=== PATIENT | female | born 1985 | race Caucasian/White ===

== ENCOUNTER 2021-11-06 15:14 | Emergency (ER) | payer SELFPAY ==
[~2021-11-06] VITALS: Ht 162.6 cm; Wt 75.0 kg
[2021-11-06 16:04] VITALS: TEMP 99.6
[2021-11-06 16:16] LABS: COLLECTION METHOD CLEAN CATCH
[2021-11-06 16:22] LABS: MUCOUS Present (NOT PRESENT); PH 6 (5-8); URINE APPEARANCE Hazy (CLEAR/HAZY); URINE BACTERIA Rare (NONE SEEN); URINE BILIRUBIN Negative (NEGATIVE); URINE BLOOD 2+ (NEGATIVE); URINE COLOR Yellow (YELLOW); URINE GLUCOSE Negative (NEGATIVE); URINE KETONE Trace (NEGATIVE); URINE LEUKOCYTE ESTERASE Negative (NEGATIVE); URINE NITRATE Negative (NEGATIVE); URINE PROTEIN(semi-quant) Negative (NEGATIVE); URINE RBC 0-2 /hpf (0-2); URINE UROBILINOGEN Negative (NEGATIVE)
[2021-11-06 17:20] VITALS: BP 123/66; PULSE 88
== END 2021-11-06 17:22 | disposition home or self-care (01) ==
LOC: COL.ER 15:14
PROVIDERS: Nurse Practitioner Primary Care
DX: U07.1 COVID-19 (principal); F17.210 Nicotine dependence, cigarettes, uncomplicated; Z32.02 Encounter for pregnancy test, result negative